=== PATIENT | female | born 1995 | race African-American/Black ===

== ENCOUNTER 2023-03-27 11:13 | Emergency (ER) | payer BC ==
[~2023-03-27] VITALS: Ht 172.7 cm; Wt 104.3 kg
[2023-03-27 11:33] VITALS: BP 120/79; PULSE 76; RESP 18; TEMP 98; O2SAT 98
--- NOTE | 2023-03-27 12:00 | NUR ---
PT AMBULATED TO BED 9
[2023-03-27] MEDS ORDERED: levETIRAcetam 500 MG TAB PO ONE (12:10)
--- NOTE | 2023-03-27 12:15 | NUR ---
MD at bedside assessing pt
--- NOTE | 2023-03-27 12:22 | NUR ---
PT MEDICATED PER MD ORDERS. ALLERGY TO MOTRIN/IBUPROFEN VERBALIZED PRIOR TO ADMINISTRATION OF MEDICATIONS. MARIS
--- NOTE | 2023-03-27 12:33 | NUR ---
PATIENT PRESENTS TO ED WITH C/O ABD DISCOMFORT [id number], NAUSEA, INCREASED URGENCY FOR URINATION AND SPOTTING BLOOD. PT STATES . DENIES V/D; SKIN IS PINK/WARM/DRY; AAOX4 WITH EVEN AND STEADY GAIT; LUNGS CLEAR BL; HR EVEN AND REGULAR; PT DENIES ANY FEVER, CP, SOB, OR COUGH AT THIS TIME; PATIENT STATES PAIN OF 0/10 AT THIS TIME; VSS; PATIENT POSITIONED FOR COMFORT; HOB ELEVATED; BEDRAILS UP X2; BED IN LOWEST POSITION. ER MD MADE AWARE OF PT STATUS.CALL LIGHT WITHIN REACH.
[2023-03-27 12:44] LABS: APPEARANCE,URINE CLEAR (CLEAR); BILIRUBIN,URINE NEGATIVE (NEGATIVE); BLOOD, URINE NEGATIVE (NEGATIVE); COLOR,URINE YELLOW (YELLOW); LEUKOCYTE ESTERASE ,URINE 1+ (NEGATIVE); NITRITE, URINE NEGATIVE (NEGATIVE); UGLUCOSE NEGATIVE (NEGATIVE)
[2023-03-27 12:55] LABS: RBC,URINE 0-5 /HPF (0-5)
--- NOTE | 2023-03-27 13:40 | NUR ---
PATIENT ELOPED FROM FACILITY. DISCHARGE INSTRUCTIONS NOT GIVEN TO PATIENT. DR. MANZANARES NOTIFIED AND AWARE.
== END 2023-03-27 13:40 | disposition left against medical advice (07) ==
LOC: EEVIPCON 11:13 → MED 11:13
DX: N39.0 Urinary tract infection, site not specified (principal); J45.909 Unspecified asthma, uncomplicated; Z91.148 Patient's other noncompliance with medication regimen for other reason; Z91.018 Allergy to other foods; Z88.6 Allergy status to analgesic agent; Z91.013 Allergy to seafood; Z91.010 Allergy to peanuts
CPT/HCPCS: 81001; 81025; 87086; 87491; 99283